=== PATIENT | female | born 1955 | race Caucasian/White ===

== ENCOUNTER 2024-06-04 14:23 | Outpatient (CLI) | payer MEDICARE, SELFPAY | END 2024-06-04 14:24 | disposition home or self-care (01) | LOC: NFLDREF 06-05 03:16 | PROVIDERS: Visit Provider Physician Assistant | DX: R30.0 Dysuria (principal); N39.0 Urinary tract infection, site not specified; R50.9 Fever, unspecified; R05.9 Cough, unspecified; R05.1 Acute cough | CPT/HCPCS: 87086; 87186 ==